=== PATIENT | female | born 1950 ===

== ENCOUNTER 2019-03-12 05:00 | Day surgery (SDC) | payer OTHER ==
[~2019-03-12 05:00] MED LIST: CRESTOR10 MG PO; LISINOPRIL2.5 MG PO; SYNTHROID88 MCG PO
== END 2019-03-12 11:00 | disposition home or self-care (01) ==
LOC: CIR.AMB 05:00
DX: M71.341 Other bursal cyst, right hand (principal)